=== PATIENT | male | born 1995 | race Caucasian/White ===

== ENCOUNTER 2020-10-14 22:01 | Emergency (ER) | payer OTHER ==
[~2020-10-14] VITALS: Ht 180.3 cm; Wt 90.7 kg
[~2020-10-14 22:01] MED LIST: NORCO 5-325 TA1 EACH PO
== END 2020-10-14 22:40 | disposition home or self-care (01) ==
LOC: ED 22:01
DX: S61.211A Laceration without foreign body of left index finger without damage to nail, initial encounter (principal); W45.8XXA Other foreign body or object entering through skin, initial encounter
CPT/HCPCS: 73140; 99283-25

== ENCOUNTER 2021-05-10 07:04 | Day surgery (SDC) | payer OTHER ==
[~2021-05-10] VITALS: Ht 180.3 cm; Wt 94.5 kg
[~2021-05-10 07:04] MED LIST changes: +ALEVE220 MG PO; +MULTI-VITAMIN1 EACH PO
--- NOTE | 2021-05-10 09:00 | NUR ---
05/10/21 0859 Belkis Molina 0852- PT ARRIVES TO PACU AROUSABLE TO TACTILE STIMULI. PT UPDATED THAT HE IS DONE WITH HIS PROCEDURE, HE NODS, AND FALLS BACK TO SLEEP. RESP EVEN AND UNLABORED. OXYGEN SAT HIGH 90'S TO 100% ON 3L VIA NC.
--- NOTE | 2021-05-10 09:55 | OR ---
[facility] [address] [place], [place] [address] Signed DATE OF OPERATION: 05/10/2021 SURGEON: Adelita Araujo MD PREOPERATIVE DIAGNOSES: 1. Chronic generalized abdominal pain. 2. Chronic abdominal bloating. 3. Chronic fecal urgency. 4. Aleve p.r.n. POSTOPERATIVE DIAGNOSES: 1. Minimal diffuse gastritis. 2. Unremarkable colonoscopy. PROCEDURES: 1. Esophagogastroduodenoscopy with CLOtest and biopsies of the antrum. 2. Colonoscopy with random cold biopsies. ESTIMATED BLOOD LOSS: None. INDICATIONS: Jimmy is a 26-year-old young man, who was asked to see me for upper and lower endoscopy. He explained that he finished high school early along with college because he was home-schooled. 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 He will complete that training within a couple of years. He wants to go on and finish finance classes, so he can get into the management. He said in most of his life, he has had generalized abdominal pain and bloating. He said he really cannot belch. He said he has met other people in similar situations. He cannot specifically identify any trigger foods. He does not feel particularly stressed. He also describes fecal urgency. He took a recent course of amoxicillin for sinusitis and that changed his bowel habits for a while. He has been to his primary care provider. He was asked to see me with respect to the above. In the office, I gave him a booklet on both upper and lower endoscopy. He understands the nature of the two tests. He is very detail oriented. We did review the risks including, but not limited to gas bloating, crampy abdominal pain, bleeding, perforation requiring surgery, and missed diagnosis. We also reviewed the need for IV conscious sedation. He had expressed understanding and wished to proceed. DESCRIPTION OF PROCEDURE: Jimmy was taken into our endoscopy suite, placed in the left lateral decubitus Electronically Signed By: ADELITA ARAUJO MD 05/10/21 0955 PATIENT NAME: JIMMY BARTON OPERATIVE REPORT DATE OF : [birth year] REPORT #: [id number] PHYSICIAN: ADELITA ARAUJO MD PCP: ANASTASIIA ROSENTHAL PAC REPORT IS CONFIDENTIAL AND NOT TO BE RELEASED WITHOUT AUTHORIZATION [facility] [address] [place], [place] [address] Signed position. He was given a total of 8 mg of Versed and 150 mcg of fentanyl to cover the case. The posterior oropharynx was anesthetized with lidocaine spray. A bite block was utilized for the upper endoscopy. The adult gastroscope was introduced and advanced quite readily out into the third portion of the duodenum under direct visualization of camera without difficulty. The duodenum and pyloric channel were unremarkable. He had very minimal mild erythematous changes in the stomach. We went and took a biopsy of the antrum for CLOtest as well as pathologic review. There were no ulcerations. Upon retroflexion of scope, he has no evidence of an obvious hiatal hernia. The scope was withdrawn up through the area of the GE junction, which was compliant without stricture. There was no gastric or esophageal varices. Very minimal disruption at the Z-line. No Shah mucosa. No distal esophagitis. The middle and upper esophagus were unremarkable. After this, the gas was suctioned out and the gastroscope removed. Jimmy tolerated his upper endoscopy quite well. Jimmy was then rotated into the left lateral decubitus position. He was maintained on IV sedation with Versed and fentanyl. A digital rectal exam was performed and this was unremarkable. No evidence of any external hemorrhoids. Good sphincter tone. The adult colonoscope was introduced, advanced all around into the cecum under direct visualization of camera without difficulty. His prep was quite excellent. We could easily see the appendiceal orifice and the ileocecal valve. Unfortunately, we could not get our scope returned up into the terminal ileum. The scope was then slowly withdrawn. We took pictures throughout for photodocumentation. We took random biopsies throughout the colon for pathologic review, one in the right colon, the other in the transverse colon, and the third one in the proximal sigmoid colon. The rectum itself was unremarkable. We saw no inflammatory changes, no polyps, no diverticula. Upon retroflexion of scope, there was no evidence of any internal hemorrhoids above the anal canal. After this, the gas was suctioned out. The colonoscope removed. Jimmy tolerated his lower endoscopy quite well. RECOMMENDATIONS: I will see Jimmy back in my office in 7 to 14 days to review his results. Adelita Araujo MD [facility]/MOD[facility] /[id number] Electronically Signed By: ADELITA ARAUJO MD 05/10/21 0955 PATIENT NAME: JIMMY BARTON OPERATIVE REPORT DATE OF : [birth year] REPORT #: [id number] PHYSICIAN: ADELITA ARAUJO MD PCP: ANASTASIIA ROSENTHAL PAC REPORT IS CONFIDENTIAL AND NOT TO BE RELEASED WITHOUT AUTHORIZATION [facility] [address] [place], [place] [address] Signed cc: Adelita Araujo MD Copies: ADELITA ARAUJO MD ~ Electronically Signed By: ADELITA ARAUJO MD 05/10/21 0955 PATIENT NAME: JIMMY BARTON OPERATIVE REPORT DATE OF : [birth year] REPORT #: [id number] PHYSICIAN: ADELITA ARAUJO MD PCP: ANASTASIIA ROSENTHAL PAC REPORT IS CONFIDENTIAL AND NOT TO BE RELEASED WITHOUT AUTHORIZATION
--- NOTE | 2021-05-11 16:21 | PATH ---
[facility] [address] [place], [place] [address] Signed SPECIMEN(S): A ANTRUM BIOPSY SPECIMEN(S): B RANDOM COLON BIOPSIES SPECIMEN SOURCE: A. ANTRUM BIOPSY B. RANDOM COLON BIOPSIES CLINICAL HISTORY: Bloating, abdominal pain, fecal urgency. MICROSCOPIC DESCRIPTION: Histologic sections of all submitted blocks are examined by light microscopy. These findings, together with the gross examination, support the pathologic diagnosis. FINAL PATHOLOGIC DIAGNOSIS: A. Antrum, biopsy: - No significant histopathologic alterations. B. Colon, random biopsies: - Features suggestive of an atypical form of microscopic colitis. - See comment. COMMENT: (A) The sections through the gastric biopsies show fragments of histologically unremarkable antral mucosa. There is no evidence of acute or chronic inflammation. There is no evidence of H. pylori, intestinal metaplasia, abnormal infiltrates or neoplasia. (B) There is a mild increase in the number of mononuclear cells in the lamina propria and congestion of the vasculature beneath the surface. There is a mild suggestion of thickening of the basement membrane as might be seen in collagenous colitis, but the degree of thickening that is present may not be sufficient to warrant that diagnosis. Additionally, there is no significant intraepithelial lymphocytosis present within the biopsy to make a diagnosis of lymphocytic colitis. Nonetheless, the changes that are present do somewhat resemble the changes that may be seen predominantly in collagenous colitis and less so, lymphocytic colitis. It is possible that the changes that are present represent an incomplete expression of predominantly collagenous colitis and less so, lymphocytic colitis. Alternatively, they may represent alterations secondary to a resolving infection or possibly NSAID use or potentially celiac disease, with PATIENT NAME: PIO BARTON PATHOLOGY DATE OF : [birth year] REPORT #: [id number] PHYSICIAN: KYRIE DAMON PCP: ANASTASIIA ROSENTHAL PAC REPORT IS CONFIDENTIAL AND NOT TO BE RELEASED WITHOUT AUTHORIZATION [facility] [address] [place] [address] Signed only mild manifestations present in the colon at this time. TWK:vlg:C2NR GROSS DESCRIPTION: Two specimens are received in two containers, labeled "JH." A. The specimen, labeled ", antrum biopsy," is received in formalin and consists of one andres soft tissue fragment that measures 0.4 cm in greatest dimension. The specimen is entirely submitted in cassette (A1). B. The specimen, labeled "JH, random colon biopsy," is received in formalin and consists of three andres soft tissue fragment(s) that measure 0.2-0.3 cm in greatest dimension. The specimen is entirely submitted in cassette (B1). JS (under the direct supervision of a pathologist) The Gross Description was prepared using a voice recognition system. The report was reviewed for accuracy; however, sound-alike word errors, addition and/or deletions may occur. If there is any question about this report, please contact Client Services. PERFORMING LABORATORY: The technical component was performed by [facility] [address] (Literary Agent: Juliette Lozano MD; CLIA# [id number]). [facility], [address] [address] (CLIA# [id number]). Diagnostician: Richard Lopes MD Pathologist Electronically Signed 05/11/2021 Copies: ~ PATIENT NAME: MICKPIO PATHOLOGY DATE OF : [birth year] REPORT #: [id number] PHYSICIAN: KYRIE PATHOLOGY PCP: ANASTASIIA ROSENTHAL PAC REPORT IS CONFIDENTIAL AND NOT TO BE RELEASED WITHOUT AUTHORIZATION
== END 2021-05-10 10:25 | disposition home or self-care (01) ==
LOC: OPS 07:04 → DS 07:08 → OPS 08:15 → DS 08:15 → OPS 10:25
PROVIDERS: ATTEND Colon & Rectal Surgery
PROC: 0DBL8ZX Excision of Transverse Colon, Via Natural or Artificial Opening Endoscopic, Diagnostic (ICD-10-PCS; 2021-05-10)
PROC: 0DBN8ZX Excision of Sigmoid Colon, Via Natural or Artificial Opening Endoscopic, Diagnostic (ICD-10-PCS; 2021-05-10)
PROC: 0DB68ZX Excision of Stomach, Via Natural or Artificial Opening Endoscopic, Diagnostic (ICD-10-PCS; principal; 2021-05-10 08:15)
PROC: 0DBK8ZX Excision of Ascending Colon, Via Natural or Artificial Opening Endoscopic, Diagnostic (ICD-10-PCS; 2021-05-10 08:15)
DX: K29.70 Gastritis, unspecified, without bleeding (principal); R15.2 Fecal urgency
CPT/HCPCS: 99153; G0500; J2250; J3010; J7121